=== PATIENT | female | born 1950 | race African-American/Black ===

== ENCOUNTER → 2016-07-31 | Outpatient (CLI) | payer MEDICARE ==
--- NOTE | ~2016-07-31 | CR230 ---
[facility] A Service of [facility] & [facility] / [facility] RADIOLOGY TEXT RESULTS PATIENT: SARAH BANERJEE LOCATION: [facility] : 50 UNIT #: [id number] AGE: [address]: BETZAIDA HART APRN SEX: F ORDER DR: [id number] [facility] [address]. [place], [place] [address] [id number] O MR#: [id number] Acc #: [id number] NAME: SARAH BANERJEE : 1950 SEX: F STUDY DATE/TIME: 07/31/2016 15:39 UNIT: [facility] ROOM: STUDY DESCRIPTION: CR Shoulder Min 2 View Rt Attending Physician: Betzaida Hart Aprn Referring Physician: Betzaida Hart Aprn Ordering Physician: Betzaida Hart Aprn Primary Care Physician: Betzaida Hart Aprn MEDICAL IMAGING REPORT This report is preliminary unless electronic signature is present EXAM Right shoulder 3 views HISTORY Shoulder pain for 2 months. Limited range of motion. FINDINGS 3 views of the right shoulder demonstrate 3.5 cm inferior subluxation of the humeral head relative to the glenoid. This could be due to joint laxity or shoulder effusion or post-traumatic deformity. The humeral head abuts the inferior margin of the glenoid over a craniocaudal dimension of less than 1 cm. No fracture. The glenohumeral alignment is satisfactory. Dictated by... Anderson Jeter M.D. THIS IS AN ELECTRONICALLY VERIFIED REPORT Anderson Jeter M.D. at 08/03/2016 10:18 AM SANTA/lucy TD: 08/01/2016 02:26 JOB #: [id number] MEDICAL IMAGING REPORT Page 1 of 1 COPY
== END | disposition home or self-care (01) ==
LOC: CRAD 15:09
DX: M25.511 Pain in right shoulder (principal)
CPT/HCPCS: 73030